=== PATIENT | male | born 1950 | race Caucasian/White ===

== ENCOUNTER 2019-07-26 06:19 | Observation (INO) | payer MEDICARE ==
[~2019-07-26] VITALS: Ht 193 cm; Wt 100.4 kg
[2019-07-26] VITALS (14 sets, daily range): BP systolic 152–189; BP diastolic 77–94
--- NOTE | 2019-07-26 06:40 | NUR ---
Patient ambulated well into room. Patient accompanied by spouse, sitting at bedside. Patient resting comfortably. Reports chest discomfort. Patient is not diaphoretic, no sense of impending doom. Attached to pulsatile oxygen and blood pressure sensors. Blood pressure elevated but patient just finished ambulating into room. Will monitor to see if improves.
--- NOTE | 2019-07-26 06:50 | NUR ---
RECEIVED REPORT FROM [facility].
[2019-07-26] MEDS ORDERED: ASPIRIN 81 MG TABLET CHEW ONE (06:58)
[2019-07-26] MEDS ORDERED: ASPIRIN 81 MG TABLET CHEW PO ONE (07:00)
[2019-07-26] MEDS ORDERED: NITROGLYCERIN SINGLE TAB 0.4 MG SL PRN (07:00)
[2019-07-26] MEDS ORDERED: NITROGLYCERIN SINGLE TAB 0.4 MG SL ONE (07:21)
--- NOTE | 2019-07-26 07:32 | NUR ---
AFTER GIVEN NITRO PT STATES CHEST DOES NOT FEEL HEAVY AND NO PAIN IN ARM AND NUMBNESS LEFT FACE RESOLVED.
[2019-07-26 07:33] LABS: BASOPHILS # (AUTO) 0.02 x10^3/uL (0-0.1); BASOPHILS % (AUTO) 0 % (0-1); EOSINOPHILS % (AUTO) 2 % (1-7); LYMPHOCYTES # (AUTO) 1.54 x10^3/uL (1-3.4); LYMPHOCYTES % (AUTO) 32 % (22-44); MD NO; MEAN CORPUSCULAR HEMOGLOBIN 30.2 pg (27.5-34.5); MEAN CORPUSCULAR HGB CONC 32.9 g/dL (33.2-36.2); MEAN CORPUSCULAR VOLUME 91.8 fL (81-97); MEAN PLATELET VOLUME 9.2 fL (7.4-10.4); MONOCYTES # (AUTO) 0.37 x10^3/uL (0.2-0.8); MONOCYTES % (AUTO) 8 % (2-9); NEUTROPHILS # (AUTO) 2.85 x10^3/uL (1.8-6.8); NEUTROPHILS % (AUTO) 58 % (42-75); PLATELET COUNT 173 x10^3/uL (130-400); RED BLOOD COUNT 4.55 x10^6/uL (4.38-5.82); RED CELL DISTRIBUTION WIDTH 12.9 % (9.4-14.8)
[2019-07-26 07:35] LABS: ALANINE AMINOTRANSFERASE 29 U/L (12-78); ALBUMIN 3.6 g/dL (3.4-5.0); CALCIUM 8.6 mg/dL (8.5-10.1); CREATININE 1.15 mg/dL (0.7-1.3)
[2019-07-26 07:39] LABS: ALKALINE PHOSPHATASE 67 U/L (45-117); BILIRUBIN,TOTAL 0.4 mg/dL (0.2-1.0); TOTAL PROTEIN 6.7 g/dL (6.4-8.2); TROPONIN I < 0.015 ng/mL (0.000-0.045)
[2019-07-26 07:56] LABS: ANION GAP 5 mmol/L (5-15); CHLORIDE 111 mmol/L (98-107)
--- NOTE | 2019-07-26 08:50 | NUR ---
CONTINUE TO MONITOR PATIENT. DENIES CP AT THIS TIME. AWARE OF INTENT TO ADMIT.
--- NOTE | 2019-07-26 09:29 | NUR ---
REPORT TO [facility] PT TO BE TRANSPORTED
[2019-07-26] MEDS ORDERED: ASA/APAP/ CAFFEINE TABLET PO PRN (09:30)
[2019-07-26] MEDS ORDERED: GUAIFENESIN/DM 200-20MG, 10ML UDC PO PRN (09:30)
[2019-07-26] MEDS ORDERED: ONDANSETRON 2MG/ML, 2ML IVPush PRN (09:30)
[2019-07-26] MEDS ORDERED: TRAZODONE 50MG TABLET PO PRN (09:30)
[2019-07-26] MEDS ORDERED: ONDANSETRON ODT 4 MG PO PRN (09:30)
[2019-07-26] MEDS ORDERED: POLYETHYLENE GLYCOL 17 GM PACKET PO PRN (09:30)
[2019-07-26] MEDS ORDERED: ACETAMINOPHEN 325 MG TABLET PO PRN (09:30)
[2019-07-26] MEDS ORDERED: GARL200T PO (10:21)
[2019-07-26] MEDS ORDERED: [UNRECOGNIZED DRUG - OTHER] PO (10:24)
[2019-07-26] MEDS ORDERED: [UNRECOGNIZED DRUG - OTHER] PO (10:24)
[2019-07-26] MEDS ORDERED: HAWT500C PO (10:24)
[2019-07-26] MEDS: hydrALAzine 20 MG/ML, 1ML IVPush PRN ×2 (10:33→21:31)
[2019-07-26 11:06] LABS: TROPONIN I < 0.015 ng/mL (0.000-0.045)
[2019-07-26] MEDS ORDERED: METOPROLOL TARTRATE 50 MG TABLET PO ONE (11:30)
[2019-07-26] MEDS ORDERED: METOPROLOL TARTRATE 25 MG TABLET ONE (13:25)
[2019-07-26] MEDS: METOPROLOL TARTRATE 25 MG TABLET PO SCH ×2 (13:28→18:03)
[2019-07-26 17:17] LABS: TROPONIN I 0.086 ng/mL (0.000-0.045)
[2019-07-26 23:41] LABS: TROPONIN I 0.078 ng/mL (0.000-0.045)
[2019-07-27] VITALS (8 sets, daily range): BP systolic 154–185; BP diastolic 78–90
[2019-07-27] MEDS ORDERED: ENALAPRILAT 1.25 MG/ML, 1ML ONE (00:53)
[2019-07-27] MEDS ORDERED: ENALAPRILAT 1.25 MG/ML, 2ML IV ONE (01:00)
[2019-07-27] MEDS ORDERED: ENALAPRILAT 1.25 MG/ML, 1ML IVPush ONE (01:30)
[2019-07-27] MEDS ORDERED: ENALAPRILAT 1.25 MG/ML, 1ML IV PRN (04:00)
[2019-07-27] MEDS ORDERED: METOPROLOL TARTRATE 25 MG TABLET PO SCH (06:00)
[2019-07-27 06:20] LABS: ANION GAP 3 mmol/L (5-15); CALCIUM 8.7 mg/dL (8.5-10.1); CHLORIDE 112 mmol/L (98-107)
[2019-07-27 06:30] LABS: BASOPHILS # (AUTO) 0.02 x10^3/uL (0-0.1); BASOPHILS % (AUTO) 0 % (0-1); EOSINOPHILS # (AUTO) 0.07 x10^3/uL (0-0.4); EOSINOPHILS % (AUTO) 1 % (1-7); LYMPHOCYTES # (AUTO) 1.84 x10^3/uL (1-3.4); LYMPHOCYTES % (AUTO) 28 % (22-44); MD NO; MEAN CORPUSCULAR HEMOGLOBIN 30.9 pg (27.5-34.5); MEAN CORPUSCULAR HGB CONC 33.1 g/dL (33.2-36.2); MEAN CORPUSCULAR VOLUME 93.3 fL (81-97); MEAN PLATELET VOLUME 9.5 fL (7.4-10.4); MONOCYTES # (AUTO) 0.38 x10^3/uL (0.2-0.8); MONOCYTES % (AUTO) 6 % (2-9); NEUTROPHILS # (AUTO) 4.29 x10^3/uL (1.8-6.8); NEUTROPHILS % (AUTO) 65 % (42-75); PLATELET COUNT 182 x10^3/uL (130-400); RED BLOOD COUNT 4.77 x10^6/uL (4.38-5.82); RED CELL DISTRIBUTION WIDTH 13.2 % (9.4-14.8)
[2019-07-27] MEDS ORDERED: LISINOPRIL 10 MG TABLET PO SCH (10:30)
[2019-07-27] MEDS ORDERED: ASPIRIN 81 MG TABLET EC PO SCH (11:00)
[2019-07-27 11:05] LABS: TROPONIN I 0.027 ng/mL (0.000-0.045)
[2019-07-27 11:15] LABS: CHOL/HDL RATIO 4.3; LDL/HDL RATIO 2.9 (0.5-3.0)
[2019-07-27] MEDS ORDERED: AMLO5TAB4 PO (12:46)
[2019-07-27] MEDS ORDERED: METO25TA91 PO (12:46)
[2019-07-27] MEDS ORDERED: ASPI81TA45 PO (12:46)
== END 2019-07-27 14:36 | disposition home or self-care (01) ==
LOC: ED 08:34 → EDIP 08:35 → INTOOBSV 08:35 → ED 08:49 → 5SO 10:02 → DCLOUNGE 07-27 14:24
PROVIDERS: ADMIT Family Medicine; ATTEND Internal Medicine
DX: R07.89 Other chest pain (principal); R06.00 Dyspnea, unspecified; R79.89 Other specified abnormal findings of blood chemistry; R09.89 Other specified symptoms and signs involving the circulatory and respiratory systems; I10 Essential (primary) hypertension; I51.89 Other ill-defined heart diseases; Z79.82 Long term (current) use of aspirin; Z79.899 Other long term (current) drug therapy
CPT/HCPCS: 36415; 70450; 71045; 80048; 80053; 80061; 82962; 83880; 84484; 85025; 93005; 93017; 93306; 93880; 96374; 96375; 96376; 99284; G0378; J0360